=== PATIENT | male | born 1965 | race Caucasian/White ===

== ENCOUNTER 2016-07-31 14:48 | Inpatient (IN) | payer OTHER ==
[2016-07-31 16:12] VITALS: BMI 25.5
--- NOTE | 2016-07-31 19:43 | HP ---
COWS - Scale Resting Pulse: 1= VT 81-100 Sweatin= Chills/Flushing Restless Observation: 3= Extraneous Movement Pupil Size: 0= Normal to Room Light Bone or Joint Aches: 2= Severe Diffuse Aches Runny Nose/ Eye Tearin= Runny Nose/Eyes GI Upset > 30mins: 2= Nausea/Diarrhea Tremor Observation: 2= Slight Tremor Visible Yawning Observation: 0= None Anxiety or Irritability: 2=Irritable/Anxious Goose Flesh Skin: 0=Smooth Skin COWS Score: 15 CIWA Score - CIWA Score Nausea/Vomitin-Mild Nausea/No Vomiting Muscle Tremors: 4-Moderate,w/Arms Extend Anxiety: 4-Mod. Anxious/Guarded Agitation: 4-Moderately Restless Paroxysmal Sweats: 1-Minimal Palms Moist Orientation: 0-Oriented Tacttile Disturbances: 0-None Auditory Disturbances: 0-None Visual Disturbances: 0-None Headache: 0-None Present CIWA-Ar Total Score: 14 Admission ROS BHS - HPI Chief Complaint: withdrawal sx Allergies/Adverse Reactions: Allergies Allergy/AdvReac Type Severity Reaction Status Date / Time No Known Allergies Allergy Verified 07/31/16 17:46 History of Present Illness: 51 years old male with long history of alcohol, opioid nicotine dependence denies medical denies mental illness is admitted to detox Exam Limitations: No Limitations - Ebola screening Have you traveled outside of the country in the last 21 days: No Have you had contact with anyone from an Ebola affected area: No Have you been sick,other than usual withdrawal symptoms: No Do you have a fever: No - Review of Systems Constitutional: Chills, Loss of Appetite, Changes in sleep, Unintentional Wgt. Loss, Unexplained wgt Loss EENT: reports: No Symptoms Reported Respiratory: reports: No Symptoms reported Cardiac: reports: No Symptoms Reported GI: reports: Nausea, Poor Appetite, Poor Fluid Intake, Abdominal cramping : reports: No Symptoms Reported Musculoskeletal: reports: Back Pain, Joint Pain, Muscle Pain, Neck Pain Integumentary: reports: Change in Color (x 10 years) Neuro: reports: Tremors Endocrine: reports: No Symptoms Reported Hematology: reports: No Symptoms Reported Psychiatric: reports: Judgement Intact, Mood/Affect Appropiate, Orientated x3 Other Systems: Reviewed and Negative Patient History - Patient Medical History Hx Anemia: No Hx Asthma: No Hx Chronic Obstructive Pulmonary Disease (COPD): No Hx Cancer: No Hx Cardiac Disorders: No Hx Congestive Heart Failure: No Hx Hypertension: No Hx Hypercholesterolemia: No Hx Pacemaker: No HX Cerebrovascular Accident: No Hx Seizures: No Hx Dementia: No Hx Diabetes: No Hx Gastrointestinal Disorders: No Hx Liver Disease: No Hx Genitourinary Disorders: No Hx Sexually Transmitted Disorders: No Hx Renal Disease (ESRD): No Hx Thyroid Disease: No Hx Human Immunodeficiency Virus (HIV): No Hx Hepatitis C: No Hx Depression: No Hx Suicide Attempt: No Hx Bipolar Disorder: No Hx Schizophrenia: No - Patient Surgical History Past Surgical History: No Hx Neurologic Surgery: No Hx Cataract Extraction: No Hx Cardiac Surgery: No Hx Lung Surgery: No Hx Breast Surgery: No Hx Breast Biopsy: No Hx Abdominal Surgery: No Hx Appendectomy: No Hx Cholecystectomy: No Hx Genitourinary Surgery: No Hx Orthopedic Surgery: No - PPD History Previous Implant?: Yes Documented Results: Negative w/o proof Implanted On Prior R Admission?: No PPD to be Administered?: Yes - Smoking Cessation Smoking history: Current every day smoker Have you smoked in the past 12 months: Yes Aproximately how many cigarettes per day: 30 Cigars Per Day: 0 Hx Chewing Tobacco Use: No Initiated information on smoking cessation: Yes 'Breaking Loose' booklet given: 07/31/16 - Substance & Tx. History Hx Alcohol Use: Yes Hx Substance Use: Yes Substance Use Type: Alcohol, Opiates Hx Substance Use Treatment: Yes - Substances Abused Alcohol Route: Oral Frequency: Daily Amount used: BEER- 2 SIX PACKS Age of first use: 19 Date of Last Use: 07/30/16 Heroin Route: Inhalation Frequency: Daily Amount used: 20 BAGS Age of first use: 19 Date of Last Use: 07/31/16 Family Disease History - Family Disease History Family Disease History: Other: Father (), Mother () Admission Physical Exam BHS - Vital Signs Vital Signs: Vital Signs - 24 hr 07/31/16 16:08 Temperature 97.0 F L Pulse Rate 92 H Respiratory 20 Rate Blood Pressure 129/84 - Physical General Appearance: Yes: Appropriately Dressed, Mild Distress, Thin, Tremorous, Irritable, Sweating, Anxious HEENTM: Yes: Hearing grossly Normal, Normal ENT Inspection, Normocephalic, Normal Voice Respiratory: Yes: Chest Non-Tender, Lungs Clear, Normal Breath Sounds, No Respiratory Distress, No Accessory Muscle Use Neck: Yes: Supple, Trachea in good position Breast: Yes: Breasts Symetrical Cardiology: Yes: Regular Rhythm, S1, S2, Tachycardia Abdominal: Yes: Non Tender, Soft Genitourinary: Yes: Within Normal Limits Back: Yes: Normal Inspection Musculoskeletal: Yes: full range of Motion, Gait Steady, Back pain, Muscle Pain , Other (feet hands hyperpigmentation) Extremities: Yes: Normal Range of Motion, Non-Tender, Tremors, Swelling (hands and feet) Neurological: Yes: Alert, Motor Strength 5/5, Normal Mood/Affect, Normal Response Integumentary: Yes: Warm, Erythema (hands + feet x 10 years) Lymphatic: Yes: Within Normal Limits - Diagnostic (1) Alcohol dependence with uncomplicated withdrawal Current Visit: Yes Status: Acute (2) Opioid dependence with withdrawal Current Visit: Yes Status: Acute (3) Nicotine dependence Current Visit: Yes Status: Acute Qualifiers: Nicotine product type: cigarettes Substance use status: in withdrawal Qualified Code(s): F17.213 - Nicotine dependence, cigarettes, with withdrawal (4) Weight loss Current Visit: Yes Status: Acute (5) Chronic cellulitis Current Visit: Yes Status: Chronic Comment: hands + feet x 10 years Cleared for Admission [facility] - Detox or Rehab [facility] Level of Care: Medically Managed Detox Regimen/Protocol: Methadone/Librium [facility] Breath Alcohol Content Breath Alcohol Content: 0 Urine Drug Screen - Results Drug Screen Negative: No Urine Drug Screen Results: OPI-Opiates
[2016-07-31] MEDS ORDERED: MAG HYDROX/AL HYDROX/SIMETH 30 ML UNIT-DOSE CUP PO PRN (19:58)
[2016-07-31] MEDS ORDERED: chlordiazePOXIDE HCL 25 MG CAPSULE PO PRN (19:58)
[2016-07-31] MEDS ORDERED: IBUPROFEN 400 MG TABLET (FP) PO PRN (19:58)
[2016-07-31] MEDS ORDERED: MAGNESIUM HYDROX 2400MG/30ML ORAL SUSPENSION 30 ML CUP PO PRN (19:58)
[2016-07-31] MEDS ORDERED: LOPERAMIDE HCL 2 MG CAPSULE PO PRN (19:58)
[2016-07-31] MEDS ORDERED: MAGNESIUM CITRATE 300 ML BOTTLE PO PRN (19:58)
[2016-07-31] MEDS ORDERED: METHADONE HCL 10 MG TABLET (FOR DETOX USE ONLY) PO ONE ×2 (19:58→23:00)
[2016-07-31] MEDS ORDERED: guaiFENesin/D-METHORPHAN HB 10 ML UNIT-DOSE CUPS PO PRN (19:58)
[2016-07-31] MEDS ORDERED: ACETAMINOPHEN 325 MG TABLET (FP) PO PRN (19:58)
[2016-07-31] MEDS ORDERED: MENTHOL/PHENOL 1 EACH UD MM PRN (19:58)
[2016-07-31] MEDS ORDERED: NICOTINE POLACRILEX 4 MG GUM BUC PRN (19:58)
[2016-07-31] MEDS ORDERED: P-EPHED 60MG/TRIPROLIDI 2.5MG TABLET PO PRN (19:58)
[2016-07-31] MEDS ORDERED: COLLOIDAL OATMEAL 1 BAR EACH TP PRN (20:00)
[2016-07-31] MEDS: MINERAL OIL/PETROLAT/WATER TOPICAL CREAM 113 GM JAR TP SCH (22:30)
[2016-07-31] MEDS: THIAMINE HCL 100 MG TABLET (FP) PO SCH (22:30)
[2016-07-31] MEDS: chlordiazePOXIDE HCL 25 MG CAPSULE PO SCH (22:31)
[2016-07-31] MEDS: diphenhydrAMINE HCL 50 MG CAPSULE PO PRN (22:31)
[2016-08-01] MEDS: chlordiazePOXIDE HCL 25 MG CAPSULE PO SCH ×4 (05:50→22:12)
[2016-08-01] MEDS ORDERED: METHADONE HCL 10 MG TABLET (FOR DETOX USE ONLY) PO SCH (10:00)
[2016-08-01] MEDS: PRENATAL VITAMINS W/ FOLIC ACID TABLET (FP) PO SCH (10:36)
[2016-08-01] MEDS: NICOTINE 21 MG/24 HOURS TOPICAL PATCH TD SCH (10:37)
[2016-08-01 10:45] LABS: MCH 32.7 pg (25.7-33.7); MCHC 33.8 g/dl (32.0-35.9); MEAN CELL VOLUME 96.6 fl (80-96); MEAN PLT VOLUME 8.2 fl (7.5-11.1); PLATELET COUNT 181 K/MM3 (134-434); RDW 13.3 % (11.9-15.9); WHITE BLOOD COUNT 5.1 K/mm3 (4.0-10.0)
[2016-08-01 11:01] LABS: ALBUMIN 3.3 g/dl (3.4-5.0); ALK PHOS 116 U/L (45-117); ANION GAP 10 (8-16); BILIRUBIN,TOTAL 0.7 mg/dL (0.2-1.0); CALCIUM 8.9 mg/dL (8.5-10.1); CO2 29 mmol/L (21-32); COCKROFT - GAULT 140.97; CREATININE 0.7 mg/dL (0.7-1.3); GLUCOSE,RANDOM 84 mg/dL (74-106); SGOT/AST 22 U/L (15-37); SGPT/ALT 32 U/L (12-78); TOT PROT 6.5 g/dl (6.4-8.2)
--- NOTE | 2016-08-01 11:06 | PN ---
[facility] CIWA - CIWA Score Nausea/Vomitin-No Nausea/No Vomiting Muscle Tremors: 4-Moderate,w/Arms Extend Anxiety: 5 Agitation: 4-Moderately Restless Paroxysmal Sweats: 2 Orientation: 0-Oriented Tacttile Disturbances: 0-None Auditory Disturbances: 0-None Visual Disturbances: 0-None Headache: 0-None Present CIWA-Ar Total Score: 15 BHS Progress Note (SOAP) Subjective: ANXIETY, IRRITABILITY, YAWNING, CHILLS, MUSCLE ACHES, RUNNY NOSE. Objective: 08/01/16 11:05 Vital Signs Temperature 96.6 F L 08/01/16 09:31 Pulse Rate 103 H 08/01/16 09:31 Respiratory Rate 20 08/01/16 09:31 Blood Pressure 124/79 08/01/16 09:31 O2 Sat by Pulse Oximetry (%) Laboratory Last Values WBC 5.1 K/mm3 (4.0-10.0) 08/01/16 07:30 RBC 4.43 M/mm3 (4.00-5.60) 08/01/16 07:30 Hgb 14.5 GM/dL (11.7-16.9) 08/01/16 07:30 Hct 42.8 % (35.4-49) 08/01/16 07:30 MCV 96.6 fl (80-96) H 08/01/16 07:30 MCHC 33.8 g/dl (32.0-35.9) 08/01/16 07:30 RDW 13.3 % (11.9-15.9) 08/01/16 07:30 Plt Count 181 K/MM3 (134-434) 08/01/16 07:30 MPV 8.2 fl (7.5-11.1) 08/01/16 07:30 Sodium 138 mmol/L (136-145) 08/01/16 07:30 Potassium 4.1 mmol/L (3.5-5.1) 08/01/16 07:30 Chloride 99 mmol/L (98-107) 08/01/16 07:30 Carbon Dioxide 29 mmol/L (21-32) 08/01/16 07:30 Anion Gap 10 (8-16) 08/01/16 07:30 BUN 7 mg/dL (7-18) 08/01/16 07:30 Creatinine 0.7 mg/dL (0.7-1.3) 08/01/16 07:30 Creat Clearance w eGFR > 60 (>60) 08/01/16 07:30 Random Glucose 84 mg/dL (74-106) 08/01/16 07:30 Calcium 8.9 mg/dL (8.5-10.1) 08/01/16 07:30 Total Bilirubin 0.7 mg/dL (0.2-1.0) 08/01/16 07:30 AST 22 U/L (15-37) 08/01/16 07:30 ALT 32 U/L (12-78) 08/01/16 07:30 Alkaline Phosphatase 116 U/L (45-117) 08/01/16 07:30 Total Protein 6.5 g/dl (6.4-8.2) 08/01/16 07:30 Albumin 3.3 g/dl (3.4-5.0) L 08/01/16 07:30 LABS NOTED Assessment: 08/01/16 11:05 WITHDRAWAL SX Plan: CONTINUE DETOX
--- NOTE | 2016-08-01 13:23 | EKG ---
Test Reason : Blood Pressure : / mmHG Vent. Rate : 087 BPM Atrial Rate : 087 BPM P-R Int : 132 ms QRS Dur : 088 ms QT Int : 364 ms P-R-T Axes : 072 048 041 degrees QTc Int : 438 ms NORMAL SINUS RHYTHM POSSIBLE LEFT ATRIAL ENLARGEMENT BORDERLINE ECG NO PREVIOUS ECGS AVAILABLE Confirmed by FRANKIE BAJWA MD ([id number]) on 08/01/2016 1:23:02 PM Referred By: Confirmed By:FRANKIE BAJWA MD
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
[2016-08-01 16:33] LABS: URINE APPEARANCE CLEAR; URINE BILIRUBIN NEGATIVE (NEGATIVE); URINE COLOR LTYELLOW; URINE GLUCOSE (UA) NEGATIVE (NEGATIVE); URINE KETONE NEGATIVE (NEGATIVE); URINE LEUK ESTERASE NEGATIVE (NEGATIVE); URINE NITRITE NEGATIVE (NEGATIVE); URINE PROTEIN NEGATIVE (NEGATIVE); URINE UROBILINOGEN NEGATIVE E.U./dl (0.2-1.0)
[2016-08-01 16:58] LABS: URINE BLOOD 1+ (NEGATIVE)
[2016-08-01 17:11] LABS: URINE MUCUS RARE; URINE WBC <1 /hpf (3-5)
--- NOTE | 2016-08-01 17:40 | PN ---
[facility] Progress Note Note: C/O severe back pain Increase motrin to 800mg and give flexeril 10mg tid
[2016-08-01] MEDS ORDERED: CYCLOBENZAPRINE HCL 10 MG TABLET (FP) PO ONE (17:45)
[2016-08-01] MEDS ORDERED: IBUPROFEN 400 MG TABLET (FP) PO ONE (17:45)
[2016-08-01] MEDS: IBUPROFEN 400 MG TABLET (FP) PO PRN (20:52)
[2016-08-01] MEDS: CYCLOBENZAPRINE HCL 10 MG TABLET (FP) PO SCH (22:12)
[2016-08-01] MEDS: ZOLPIDEM TARTRATE 10 MG TABLET (PARK CARE ONLY) PO PRN (22:12)
[2016-08-01] MEDS: THIAMINE HCL 100 MG TABLET (FP) PO SCH (22:12)
[2016-08-01] MEDS: MINERAL OIL/PETROLAT/WATER TOPICAL CREAM 113 GM JAR TP SCH (22:15)
--- NOTE | 2016-08-01 23:33 | PN ---
[facility] Progress Note Note: PT. IS C/O OF SEVERE PAIN (10/10) TO THE LEFT SIDE OF HIS BODY. IBU 800MG AND FLEXERIL DID NOT PROVIDE RELIEF. PT. IS SCREAMING IN PAIN. HE WILL BE EVALUATED AT [facility]. REPORT GIVEN TO LYLE COOPER.
[2016-08-02] MEDS: chlordiazePOXIDE HCL 25 MG CAPSULE PO SCH ×2 (07:47→10:24)
[2016-08-02] MEDS: CYCLOBENZAPRINE HCL 10 MG TABLET (FP) PO SCH ×3 (07:48→22:23)
[2016-08-02] MEDS: METHADONE HCL 5 MG TABLET (FOR DETOX USE ONLY) PO SCH (10:23)
[2016-08-02] MEDS: PRENATAL VITAMINS W/ FOLIC ACID TABLET (FP) PO SCH (10:23)
[2016-08-02] MEDS: NICOTINE 21 MG/24 HOURS TOPICAL PATCH TD SCH (10:23)
[2016-08-02] MEDS ORDERED: diazePAM 5 MG TABLET PO ONE (11:15)
[2016-08-02] MEDS ORDERED: cloNIDine HCL 0.1 MG TABLET PO ONE (11:18)
--- NOTE | 2016-08-02 11:25 | PN ---
S CIWA - CIWA Score Nausea/Vomitin Muscle Tremors: 4-Moderate,w/Arms Extend Anxiety: 4-Mod. Anxious/Guarded Agitation: 4-Moderately Restless Paroxysmal Sweats: 1-Minimal Palms Moist Orientation: 0-Oriented Tacttile Disturbances: 3-Moderate Itch/Numb/Burn Auditory Disturbances: 0-None Visual Disturbances: 0-None Headache: 0-None Present CIWA-Ar Total Score: 19 BHS COWS - Scale Resting Pulse: 4= AL > 121 Sweatin= Chills/Flushing Restless Observation: 3= Extraneous Movement Pupil Size: 2= Moderately Dilated Bone or Joint Aches: 4=Acute Joint/Muscle Pain Runny Nose/ Eye Tearin= Nasal Congestion GI Upset > 30mins: 1= Stomach Cramp Tremor Observation of Outstretched Hands: 2= Slight Tremor Visible Yawning Observation: 2= >3x During Session Anxiety or Irritability: 2=Irritable/Anxious Goose Flesh Skin: 0=Smooth Skin COWS Score: 22 BHS Progress Note (SOAP) Subjective: SEVERE WITHDRAWAL SX-IRRITABILITY,AGITATIONS, ANXIETY,MUSCLE ACHES/SPASMS,SWEATS /CHILLS. PT WAS SENT TO [facility] ER FOR C/O SEVERE UNBEARABLE BODY ACHES. PT RETURNED THIS MORNING AFTER CLEARANCE TO CONTINUE DETOX. ALERT O X 3. IN NAD ON ARRIVAL TO THE UNIT. PT REFUSED TO CONTINUE WITH LIBRIUM STATING IT'S NOT WORKING FOR HIM. WANTS CHANGED TO VALIUM. Objective: 08/02/16 11:25 Vital Signs Temperature 96.0 F L 08/02/16 09:33 Pulse Rate 125 H 08/02/16 09:33 Respiratory Rate 20 08/02/16 09:33 Blood Pressure 101/75 08/02/16 09:33 O2 Sat by Pulse Oximetry (%) Laboratory Last Values WBC 5.1 K/mm3 (4.0-10.0) 08/01/16 07:30 RBC 4.43 M/mm3 (4.00-5.60) 08/01/16 07:30 Hgb 14.5 GM/dL (11.7-16.9) 08/01/16 07:30 Hct 42.8 % (35.4-49) 08/01/16 07:30 MCV 96.6 fl (80-96) H 08/01/16 07:30 MCHC 33.8 g/dl (32.0-35.9) 08/01/16 07:30 RDW 13.3 % (11.9-15.9) 08/01/16 07:30 Plt Count 181 K/MM3 (134-434) 08/01/16 07:30 MPV 8.2 fl (7.5-11.1) 08/01/16 07:30 Sodium 138 mmol/L (136-145) 08/01/16 07:30 Potassium 4.1 mmol/L (3.5-5.1) 08/01/16 07:30 Chloride 99 mmol/L (98-107) 08/01/16 07:30 Carbon Dioxide 29 mmol/L (21-32) 08/01/16 07:30 Anion Gap 10 (8-16) 08/01/16 07:30 BUN 7 mg/dL (7-18) 08/01/16 07:30 Creatinine 0.7 mg/dL (0.7-1.3) 08/01/16 07:30 Creat Clearance w eGFR > 60 (>60) 08/01/16 07:30 Random Glucose 84 mg/dL (74-106) 08/01/16 07:30 Calcium 8.9 mg/dL (8.5-10.1) 08/01/16 07:30 Total Bilirubin 0.7 mg/dL (0.2-1.0) 08/01/16 07:30 AST 22 U/L (15-37) 08/01/16 07:30 ALT 32 U/L (12-78) 08/01/16 07:30 Alkaline Phosphatase 116 U/L (45-117) 08/01/16 07:30 Total Protein 6.5 g/dl (6.4-8.2) 08/01/16 07:30 Albumin 3.3 g/dl (3.4-5.0) L 08/01/16 07:30 Urine Color Ltyellow 08/01/16 15:57 Urine Appearance Clear 08/01/16 15:57 Urine pH 6.0 (5.0-8.0) 08/01/16 15:57 Urine Protein Negative (NEGATIVE) 08/01/16 15:57 Urine Glucose (UA) Negative (NEGATIVE) 08/01/16 15:57 Urine Ketones Negative (NEGATIVE) 08/01/16 15:57 Urine Blood 1+ (NEGATIVE) H 08/01/16 15:57 Urine Nitrite Negative (NEGATIVE) 08/01/16 15:57 Urine Bilirubin Negative (NEGATIVE) 08/01/16 15:57 Urine Urobilinogen Negative E.U./dl (0.2-1.0) 08/01/16 15:57 Ur Leukocyte Esterase Negative (NEGATIVE) 08/01/16 15:57 Urine RBC None /hpf (0-3) 08/01/16 15:57 Urine WBC <1 /hpf (3-5) 08/01/16 15:57 Urine Mucus Rare 08/01/16 15:57 RPR Titer Nonreactive (NONREACTIVE) 08/01/16 07:30 Assessment: 08/02/16 11:25 SEVERE WITHDRAWAL SX Plan: CONTINUE DETOX CLONIDINE 0.1 MG PO BID FLEXERIL DIRECTED CHANGED LIBRIUM TO VALIUM PER PT REQUEST.
[2016-08-02] MEDS: diazePAM 5 MG TABLET PO SCH ×2 (14:13→22:23)
[2016-08-02] MEDS: diazePAM 5 MG TABLET PO PRN (17:00)
[2016-08-02] MEDS ORDERED: cloNIDine HCL 0.1 MG TABLET PO SCH (22:00)
[2016-08-02] MEDS: cloNIDine HCL 0.1 MG TABLET PO SCH (22:23)
[2016-08-02] MEDS: THIAMINE HCL 100 MG TABLET (FP) PO SCH (22:23)
[2016-08-02] MEDS: ZOLPIDEM TARTRATE 10 MG TABLET (PARK CARE ONLY) PO PRN (22:23)
[2016-08-02] MEDS: MINERAL OIL/PETROLAT/WATER TOPICAL CREAM 113 GM JAR TP SCH (22:30)
[2016-08-02] MEDS ORDERED: chlordiazePOXIDE 5 MG CAPSULE PO SCH (23:00)
[2016-08-03] MEDS: diazePAM 5 MG TABLET PO PRN ×5 (00:49→20:09)
[2016-08-03] MEDS: IBUPROFEN 400 MG TABLET (FP) PO PRN ×2 (00:49→20:09)
[2016-08-03] MEDS: CYCLOBENZAPRINE HCL 10 MG TABLET (FP) PO SCH ×3 (05:33→22:47)
--- NOTE | 2016-08-03 10:46 | PN ---
BHS Progress Note (SOAP) Subjective: Sweating,interrupted sleep,restless. Objective: 08/03/16 10:45 Vital Signs - 8 hr 08/03/16 08/03/16 03:30 06:47 Temperature 96.1 F L Pulse Rate 100 H Respiratory 18 18 Rate Blood Pressure 118/85 Laboratory Tests 08/01/16 08/01/16 08/01/16 07:30 07:30 07:30 WBC 5.1 RBC 4.43 Hgb 14.5 Hct 42.8 MCV 96.6 H MCHC 33.8 RDW 13.3 Plt Count 181 MPV 8.2 Sodium 138 Potassium 4.1 Chloride 99 Carbon Dioxide 29 Anion Gap 10 BUN 7 Creatinine 0.7 Creat Clearance w eGFR > 60 Random Glucose 84 Calcium 8.9 Total Bilirubin 0.7 AST 22 ALT 32 Alkaline Phosphatase 116 Total Protein 6.5 Albumin 3.3 L Urine Color Urine Appearance Urine pH Urine Protein Urine Glucose (UA) Urine Ketones Urine Blood Urine Nitrite Urine Bilirubin Urine Urobilinogen Ur Leukocyte Esterase Urine RBC Urine WBC Urine Mucus RPR Titer Nonreactive 08/01/16 15:57 WBC RBC Hgb Hct MCV MCHC RDW Plt Count MPV Sodium Potassium Chloride Carbon Dioxide Anion Gap BUN Creatinine Creat Clearance w eGFR Random Glucose Calcium Total Bilirubin AST ALT Alkaline Phosphatase Total Protein Albumin Urine Color Ltyellow Urine Appearance Clear Urine pH 6.0 Urine Protein Negative Urine Glucose (UA) Negative Urine Ketones Negative Urine Blood 1+ H Urine Nitrite Negative Urine Bilirubin Negative Urine Urobilinogen Negative Ur Leukocyte Esterase Negative Urine RBC None Urine WBC <1 Urine Mucus Rare RPR Titer labs noted Assessment: 08/03/16 10:45 Withdrawal sx. Plan: Continue detox
[2016-08-03] MEDS: NICOTINE 21 MG/24 HOURS TOPICAL PATCH TD SCH (10:54)
[2016-08-03] MEDS: cloNIDine HCL 0.1 MG TABLET PO SCH ×2 (10:54→22:48)
[2016-08-03] MEDS: METHADONE HCL 5 MG TABLET (FOR DETOX USE ONLY) PO SCH (10:55)
[2016-08-03] MEDS: PRENATAL VITAMINS W/ FOLIC ACID TABLET (FP) PO SCH (10:55)
[2016-08-03] MEDS: MINERAL OIL/PETROLAT/WATER TOPICAL CREAM 113 GM JAR TP SCH (22:47)
[2016-08-03] MEDS: diazePAM 5 MG TABLET PO SCH (22:47)
[2016-08-03] MEDS: THIAMINE HCL 100 MG TABLET (FP) PO SCH (22:47)
[2016-08-03] MEDS ORDERED: chlordiazePOXIDE HCL 10 MG CAPSULE PO SCH (23:00)
[2016-08-03] MEDS: ZOLPIDEM TARTRATE 10 MG TABLET (PARK CARE ONLY) PO PRN (23:22)
[2016-08-04] MEDS: diazePAM 5 MG TABLET PO PRN ×3 (02:40→17:37)
[2016-08-04] MEDS: IBUPROFEN 400 MG TABLET (FP) PO PRN ×2 (04:01→17:27)
[2016-08-04] MEDS: CYCLOBENZAPRINE HCL 10 MG TABLET (FP) PO SCH ×3 (05:29→22:44)
[2016-08-04] MEDS ORDERED: diazePAM 5 MG TABLET PO SCH (10:00)
[2016-08-04] MEDS ORDERED: METHADONE HCL 10 MG TABLET (FOR DETOX USE ONLY) PO SCH (10:00)
[2016-08-04] MEDS: PRENATAL VITAMINS W/ FOLIC ACID TABLET (FP) PO SCH (10:32)
[2016-08-04] MEDS: cloNIDine HCL 0.1 MG TABLET PO SCH ×2 (10:32→22:44)
[2016-08-04] MEDS: diazePAM 5 MG TABLET PO SCH ×2 (10:32→22:44)
[2016-08-04] MEDS: NICOTINE 21 MG/24 HOURS TOPICAL PATCH TD SCH (10:32)
--- NOTE | 2016-08-04 18:03 | PN ---
S Progress Note (SOAP) Subjective: Nausea, Diarrhea, Interrupted sleep, Tremors, Body aches, Fatigue. Objective: PT. A & O X 1 (DISORIENTED ABOUT DAY/DATE AND ABOUT CURRENT LOCATION). 08/04/16 18:02 Vital Signs Temperature 96.8 F L 08/04/16 15:48 Pulse Rate 120 H 08/04/16 15:48 Respiratory Rate 18 08/04/16 15:48 Blood Pressure 101/65 08/04/16 15:48 O2 Sat by Pulse Oximetry (%) Laboratory Last Values WBC 5.1 K/mm3 (4.0-10.0) 08/01/16 07:30 RBC 4.43 M/mm3 (4.00-5.60) 08/01/16 07:30 Hgb 14.5 GM/dL (11.7-16.9) 08/01/16 07:30 Hct 42.8 % (35.4-49) 08/01/16 07:30 MCV 96.6 fl (80-96) H 08/01/16 07:30 MCHC 33.8 g/dl (32.0-35.9) 08/01/16 07:30 RDW 13.3 % (11.9-15.9) 08/01/16 07:30 Plt Count 181 K/MM3 (134-434) 08/01/16 07:30 MPV 8.2 fl (7.5-11.1) 08/01/16 07:30 Sodium 138 mmol/L (136-145) 08/01/16 07:30 Potassium 4.1 mmol/L (3.5-5.1) 08/01/16 07:30 Chloride 99 mmol/L (98-107) 08/01/16 07:30 Carbon Dioxide 29 mmol/L (21-32) 08/01/16 07:30 Anion Gap 10 (8-16) 08/01/16 07:30 BUN 7 mg/dL (7-18) 08/01/16 07:30 Creatinine 0.7 mg/dL (0.7-1.3) 08/01/16 07:30 Creat Clearance w eGFR > 60 (>60) 08/01/16 07:30 Random Glucose 84 mg/dL (74-106) 08/01/16 07:30 Calcium 8.9 mg/dL (8.5-10.1) 08/01/16 07:30 Total Bilirubin 0.7 mg/dL (0.2-1.0) 08/01/16 07:30 AST 22 U/L (15-37) 08/01/16 07:30 ALT 32 U/L (12-78) 08/01/16 07:30 Alkaline Phosphatase 116 U/L (45-117) 08/01/16 07:30 Total Protein 6.5 g/dl (6.4-8.2) 08/01/16 07:30 Albumin 3.3 g/dl (3.4-5.0) L 08/01/16 07:30 Urine Color Ltyellow 08/01/16 15:57 Urine Appearance Clear 08/01/16 15:57 Urine pH 6.0 (5.0-8.0) 08/01/16 15:57 Urine Protein Negative (NEGATIVE) 08/01/16 15:57 Urine Glucose (UA) Negative (NEGATIVE) 08/01/16 15:57 Urine Ketones Negative (NEGATIVE) 08/01/16 15:57 Urine Blood 1+ (NEGATIVE) H 08/01/16 15:57 Urine Nitrite Negative (NEGATIVE) 08/01/16 15:57 Urine Bilirubin Negative (NEGATIVE) 08/01/16 15:57 Urine Urobilinogen Negative E.U./dl (0.2-1.0) 08/01/16 15:57 Ur Leukocyte Esterase Negative (NEGATIVE) 08/01/16 15:57 Urine RBC None /hpf (0-3) 08/01/16 15:57 Urine WBC <1 /hpf (3-5) 08/01/16 15:57 Urine Mucus Rare 08/01/16 15:57 RPR Titer Nonreactive (NONREACTIVE) 08/01/16 07:30 LABS NOTED. Assessment: 08/04/16 18:03 WITHDRAWAL SYMPTOMS. Plan: CONTINUE DETOX. ADVISED PATIENT TO FOLLOW-UP WITH [facility] / REHAB MEDICAL PROVIDER AFTER DISCHARGE FROM DETOX FOR GENERAL MEDICAL ASSESSMENT AND FOR ABNORMAL ADMISSION LAB VALUES.
[2016-08-04] MEDS: THIAMINE HCL 100 MG TABLET (FP) PO SCH (22:43)
[2016-08-04] MEDS: MINERAL OIL/PETROLAT/WATER TOPICAL CREAM 113 GM JAR TP SCH (22:44)
[2016-08-04] MEDS: diphenhydrAMINE HCL 50 MG CAPSULE PO PRN (22:45)
[2016-08-05] MEDS: diazePAM 5 MG TABLET PO PRN (01:04)
[2016-08-05] MEDS: IBUPROFEN 400 MG TABLET (FP) PO PRN (04:53)
[2016-08-05] MEDS: CYCLOBENZAPRINE HCL 10 MG TABLET (FP) PO SCH (05:57)
[2016-08-05] MEDS ORDERED: METHADONE HCL 5 MG TABLET (FOR DETOX USE ONLY) PO SCH (06:00)
[2016-08-05 09:44] VITALS: BP 127/87; PULSE 105; TEMP 97.1
[2016-08-05] MEDS ORDERED: diazePAM 5 MG TABLET PO SCH (10:00)
[2016-08-05] MEDS: PRENATAL VITAMINS W/ FOLIC ACID TABLET (FP) PO SCH (10:06)
[2016-08-05] MEDS: NICOTINE 21 MG/24 HOURS TOPICAL PATCH TD SCH (10:06)
[2016-08-05] MEDS: cloNIDine HCL 0.1 MG TABLET PO SCH (10:08)
--- NOTE | 2016-08-05 12:06 | DS ---
[facility] Detox Discharge Summary Admission Date: 07/31/16 Discharge Date: 08/05/16 - History Present History: Alcohol Dependence, Opioid Dependence Pertinent Past History: Denies - Physical Exam Results Vital Signs: Vital Signs Temperature 97.1 F L 08/05/16 09:44 Pulse Rate 105 H 08/05/16 09:44 Respiratory Rate 20 08/05/16 09:44 Blood Pressure 127/87 08/05/16 09:44 O2 Sat by Pulse Oximetry (%) Pertinent Admission Physical Exam Findings: Withdrawal symptoms Laboratory Tests 08/01/16 08/01/16 08/01/16 07:30 07:30 07:30 WBC 5.1 RBC 4.43 Hgb 14.5 Hct 42.8 MCV 96.6 H MCHC 33.8 RDW 13.3 Plt Count 181 MPV 8.2 Sodium 138 Potassium 4.1 Chloride 99 Carbon Dioxide 29 Anion Gap 10 BUN 7 Creatinine 0.7 Creat Clearance w eGFR > 60 Random Glucose 84 Calcium 8.9 Total Bilirubin 0.7 AST 22 ALT 32 Alkaline Phosphatase 116 Total Protein 6.5 Albumin 3.3 L Urine Color Urine Appearance Urine pH Urine Protein Urine Glucose (UA) Urine Ketones Urine Blood Urine Nitrite Urine Bilirubin Urine Urobilinogen Ur Leukocyte Esterase Urine RBC Urine WBC Urine Mucus RPR Titer Nonreactive 08/01/16 15:57 WBC RBC Hgb Hct MCV MCHC RDW Plt Count MPV Sodium Potassium Chloride Carbon Dioxide Anion Gap BUN Creatinine Creat Clearance w eGFR Random Glucose Calcium Total Bilirubin AST ALT Alkaline Phosphatase Total Protein Albumin Urine Color Ltyellow Urine Appearance Clear Urine pH 6.0 Urine Protein Negative Urine Glucose (UA) Negative Urine Ketones Negative Urine Blood 1+ H Urine Nitrite Negative Urine Bilirubin Negative Urine Urobilinogen Negative Ur Leukocyte Esterase Negative Urine RBC None Urine WBC <1 Urine Mucus Rare RPR Titer Labs noted - Treatment Hospital Course: Detox Protocol Followed, Detoxed Safely, Responded well, Discharged Condition Good - Medication Discharge Medications: Ambulatory Orders NK [No Known Home Medication] 07/31/16 - Diagnosis (1) Alcohol dependence with uncomplicated withdrawal Status: Acute (2) Nicotine dependence Status: Chronic Qualifiers: Nicotine product type: cigarettes Substance use status: in withdrawal Qualified Code(s): F17.213 - Nicotine dependence, cigarettes, with withdrawal (3) Opioid dependence with withdrawal Status: Acute - AMA Did Patient Leave Against Medical Advice: No
[2016-08-06] MEDS ORDERED: diazePAM 5 MG TABLET PO SCH (10:00)
== END 2016-08-05 10:12 | disposition home or self-care (01) | DRG 773 ==
LOC: YASAS 14:48 → Y3N 18:09
PROVIDERS: ADMIT Internal Medicine; ATTEND Internal Medicine
PROC: HZ2ZZZZ Detoxification Services for Substance Abuse Treatment (ICD-10-PCS; principal; 2016-07-31)
DX: F11.23 Opioid dependence with withdrawal (principal); F10.230 Alcohol dependence with withdrawal, uncomplicated; F17.213 Nicotine dependence, cigarettes, with withdrawal; R52 Pain, unspecified; M54.5 Low back pain; Z87.898 Personal history of other specified conditions; L03.114 Cellulitis of left upper limb; L03.113 Cellulitis of right upper limb; L03.116 Cellulitis of left lower limb; L03.115 Cellulitis of right lower limb; G47.00 Insomnia, unspecified; R00.0 Tachycardia, unspecified
CPT/HCPCS: 36415; 80053; 81003; 81015; 85027; 86593; 93005; 93010

== ENCOUNTER 2016-08-02 00:46 | Emergency (ER) | payer OTHER ==
[2016-08-02 01:59] VITALS: TEMP 98.5; BMI 22.9
--- NOTE | 2016-08-02 05:37 | PDOC ---
*Physical Exam - Vital Signs Last Vital Signs Temp Pulse Resp BP Pulse Ox 98.5 F 76 14 126/83 96 08/02/16 01:57 08/02/16 01:57 08/02/16 01:57 08/02/16 01:57 08/02/16 01:57 Medical Decision Making - Medical Decision Making 08/02/16 05:37 agree with care from COMMUNICATION[employer] ELECT[employer]ICIAN SUPERVISOR Deondre *DC/Admit/Observation/Transfer Diagnosis at time of Disposition: Opiate dependence - Discharge Dispostion Disposition: HOME Condition at time of disposition: Stable - Patient Instructions Printed Discharge Instructions: DI for Drug Abuse and Drug Addiction Additional Instructions: FOLLOW UP WITH YOUR PRIMARY CARE PROVIDER OR RETURN TO [facility] FOR REHAB. MOTRIN OR TYLENOL FOR PAIN NEEDED. Print Language: SAMI
--- NOTE | 2016-08-02 06:45 | PDOC ---
History of Present Illness - General Chief Complaint: Back Pain Stated Complaint: PAIN Time Seen by Provider: 08/02/16 02:12 History Source: Patient Exam Limitations: No Limitations - History of Present Illness Initial Comments: 08/02/16 02:40 51yo Male patient presents to ED via EMS from [facility] for pain medications. Patient states he is experiencing withdrawal and would like patient medication. Patient was told he did not need pain meds, he needed rehab. Patient responded I was just in rehab. Patient is in no acute distress. Patient c/o diffuse musculoskeletal pain at this time. Denies any other complaints at this time. Past History - Travel Traveled outside of the country in the last 30 days: No Close contact w/someone who was outside of country & ill: No - Past Medical History Allergies/Adverse Reactions: Allergies Allergy/AdvReac Type Severity Reaction Status Date / Time No Known Allergies Allergy Verified 08/02/16 01:57 Home Medications: Ambulatory Orders NK [No Known Home Medication] 07/31/16 Anemia: No Asthma: No Cancer: No Cardiac Disorders: No CVA: No COPD: No CHF: No Dementia: No Diabetes: No GI Disorders: No Disorders: No HTN: No Hypercholesterolemia: No Kidney Stones: No Liver Disease: No Suicide Attempt (Hx): No Seizures: No Thyroid Disease: No - Surgical History Abdominal Surgery: No Appendectomy: No Cardiac Surgery: No Cholecystectomy: No Lung Surgery: No Neurologic Surgery: No Orthopedic Surgery: No - Reproductive History Testicular Surgery: No - Psycho/Social/Smoking Cessation Hx Anxiety: No Suicidal Ideation: No Smoking History: Never smoked Have you smoked in the past 12 months: No Number of Cigarettes Smoked Daily: 30 Cigars Per Day: 0 Information on smoking cessation initiated: No 'Breaking Loose' booklet given: 07/31/16 Hx Alcohol Use: No Drug/Substance Use Hx: No Substance Use Type: Alcohol, Opiates Hx Substance Use Treatment: Yes Review of Systems - Review of Systems Able to Perform ROS?: Yes Is the patient limited Fijian proficient: No Respiratory: No: Cough, Shortness of Breath, Stridor, Wheezing Cardiac (ROS): No: Chest Pain, Palpitations, Chest Tightness ABD/GI: No: Constipated, Diarrhea, Nausea, Poor Appetite, Poor Fluid Intake, Vomiting, Abdominal cramping : No: Dysuria, Hematuria Musculoskeletal: Yes: Muscle Pain Neurological: No: Headache, Seizure, Ataxia, Dizziness All Other Systems: Reviewed and Negative *Physical Exam - Vital Signs Last Vital Signs Temp Pulse Resp BP Pulse Ox 98.5 F 76 14 126/83 96 08/02/16 01:57 08/02/16 01:57 08/02/16 01:57 08/02/16 01:57 08/02/16 01:57 - Physical Exam General Appearance: Yes: Appropriately Dressed, Disheveled. No: Apparent Distress, Mild Distress, Moderate Distress, Severe Distress Neck: positive: Trachea midline, Supple. negative: Rigid, Decreased range of motion, Stridor, Lymphadenopathy (R), Lymphadenopathy (L) Respiratory/Chest: positive: Lungs Clear, Normal Breath Sounds. negative: Chest Tender, Respiratory Distress, Accessory Muscle Use, Labored Respiration, Rapid RR Cardiovascular: positive: Regular Rhythm, Regular Rate Gastrointestinal/Abdominal: positive: Normal Bowel Sounds, Soft. negative: Distended, Guarding, Rebound, Tenderness Musculoskeletal: positive: Normal Inspection. negative: CVA Tenderness, Decreased Range of Motion, Vertebral Tenderness Extremity: positive: Normal Capillary Refill, Normal Inspection, Normal Range of Motion. negative: Pedal Edema, Swelling, Calf Tenderness, Erythema, Inflammation Integumentary: positive: Normal Color, Dry, Warm. negative: Erythema, Rash, Swelling Neurologic: positive: dinkey engine mechanic II-XII NML intact, Fully Oriented, Alert, Normal Mood/ Affect, Normal Response, Motor Strength 5/5 *DC/Admit/Observation/Transfer Diagnosis at time of Disposition: Opioid dependence Qualifiers: Substance use status: uncomplicated Qualified Code(s): F11.20 - Opioid dependence, uncomplicated - Discharge Dispostion Disposition: HOME Condition at time of disposition: Stable Admit: No - Patient Instructions Printed Discharge Instructions: DI for Drug Abuse and Drug Addiction Additional Instructions: FOLLOW UP WITH YOUR PRIMARY CARE PROVIDER OR RETURN TO [facility] FOR REHAB. MOTRIN OR TYLENOL FOR PAIN NEEDED. Print Language: COOK ISLANDER
[2016-08-02 09:12] VITALS: BP 134/89; PULSE 88
== END 2016-08-02 08:45 | disposition home or self-care (01) ==
LOC: JER 00:46
DX: F11.20 Opioid dependence, uncomplicated (principal)
CPT/HCPCS: 99282-25